=== PATIENT | female | born 1985 | race Caucasian/White ===

== ENCOUNTER 2019-01-22 04:13 | Emergency (ER) | payer OTHER ==
[2019-01-22 04:14] VITALS: BMI 20.2
[2019-01-22] MEDS ORDERED: Iohexol 240 (50 ml) PO ONE (04:52)
--- NOTE | 2019-01-22 05:03 | C.PDOC ---
History Of Present Illness 33 year old female presents to the ED c/o RLQ abdominal pain that started 2 hours [employer]. Patient states she is currently in her third day of her menses but has never experienced this pain before. Patient denies fever, chills, nausea, v omit, diarrhea, constipation, back pain, dysuria, hematuria, rash, vaginal discharge. Time Seen by Provider: 01/22/19 04:40 Chief Complaint (Nursing): Abdominal Pain History Per: Patient History/Exam Limitations: no limitations Onset/Duration Of Symptoms: Hrs (2) Current Symptoms Are (Timing): Still Present Location Of Pain/Discomfort: RLQ Quality Of Discomfort: "Pain" Associated Symptoms: denies: Nausea, Vomiting, Diarrhea, Urinary Symptoms Recent travel outside of the [place]: No Additional History Per: Patient Abnormal Vaginal Bleeding: No Last Menstral Period: now Past Medical History Reviewed: Historical Data, Nursing Documentation, Vital Signs Vital Signs: Last Vital Signs Temp 98.8 F 01/22/19 04:25 Pulse 75 01/22/19 04:25 Resp 20 01/22/19 04:25 BP 130/72 01/22/19 04:25 Pulse Ox 100 01/22/19 04:25 - Medical History PMH: No Chronic Diseases Surgical History: No Surg Hx Family History: States: Unknown Family Hx - Social History Hx Alcohol Use: No Hx Substance Use: No - Immunization History Hx Tetanus Toxoid Vaccination: Yes Hx Influenza Vaccination: No Hx Pneumococcal Vaccination: No Review Of Systems Constitutional: Negative for: Fever, Chills Respiratory: Negative for: Cough, Shortness of Breath Gastrointestinal: Positive for: Abdominal Pain. Negative for: Nausea, Vomiting, Diarrhea Genitourinary: Negative for: Dysuria, Hematuria Musculoskeletal: Negative for: Back Pain Skin: Negative for: Rash Neurological: Negative for: Weakness, Numbness Physical Exam - Physical Exam Appears: Non-toxic, No Acute Distress Skin: Normal Color, Warm, Dry Head: Atraumatic, Normacephalic Eye(s): bilateral: Normal Inspection Oral Mucosa: Moist Neck: Normal ROM, Supple Chest: Symmetrical Cardiovascular: Rhythm Regular Respiratory: Normal Breath Sounds, No Rales, No Rhonchi, No Wheezing Gastrointestinal/Abdominal: Soft, Tenderness (RLQ), No Guarding, No Rebound Back: No CVA Tenderness Pelvic: Vaginal Bleeding (minimal), No Cervical Motion Tenderness, No Adnexal Tenderness Extremity: Normal ROM, No Tenderness, No Swelling Neurological/Psych: Oriented x3, Normal Speech, Normal Cognition Gait: Steady ED Course And Treatment - Laboratory Results Result Diagrams: 01/22/19 05:18 01/22/19 05:18 O2 Sat by Pulse Oximetry: 100 (ON RA) Pulse Ox Interpretation: Normal Progress Note: Plan: - Labs. - Toradol 30 mg IVP. - Zofran 4 mg IVP. - CT abd/pelvis. - UA. 0645- Pt returned from CT c/o of recurring pain, morphine IV ordered. Pt pending CT results and will s/o to [facility]. 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 - Scribe Statement The provider has reviewed the documentation as recorded by the Scribe Mateo Chin All medical record entries made by the Scribe were at my direction and p ersonally dictated by me. I have reviewed the chart and agree that the record accurately reflects my personal performance of the history, physical exam, medical decision making, and the department course for this patient. I have also personally directed, reviewed, and agree with the discharge instructions and disposition. Physician Patient Turnover Patient Signed Over To: Kat [facility] Handoff Comments: pending CT and disposition
[2019-01-22] MEDS ORDERED: Iodixanol 320 MG/ML 100 ML BOTTLE IV ONE (05:06)
[2019-01-22] MEDS ORDERED: Iohexol 240 (50 ml) ONE (05:20)
[2019-01-22 05:23] LABS: BASO % 0.7 % (0.0-2.0); EOS # 0.1 K/uL (0.0-0.7); EOS % 1.8 % (0.0-4.0); HEMOGLOBIN 13.7 g/dL (11.0-16.0); LYMPH # 2.5 K/uL (1.0-4.3); LYMPH % 36.5 % (20.0-40.0); MEAN CELL VOLUME 92.7 fL (81.0-99.0); MEAN CORPUSCULAR HEMOGLOBIN 30.3 pg (27.0-31.0); MEAN CORPUSCULAR HGB CONC 32.7 g/dL (33.0-37.0); MEAN PLATELET VOLUME 8.6 fL (7.2-11.7); MONO # 0.6 K/uL (0.0-0.8); MONO % 8.7 % (0.0-10.0); NEUT # 3.5 K/uL (1.8-7.0); NEUT % 52.3 % (50.0-75.0); NRBC % 0.1 % (0.0-2.0); RBC 4.54 Mil/uL (3.80-5.20); RED CELL DISTRIBUTION WIDTH 13.1 % (11.5-14.5); WHITE BLOOD COUNT 6.7 K/uL (4.8-10.8)
[2019-01-22 05:33] LABS: SQUAMOUS EPITHIAL 4 /hpf (0-5); URINE BILIRUBIN NEGATIVE (NEGATIVE); URINE BLOOD 3+ (NEGATIVE); URINE CLARITY Hazy (Clear); URINE COLOR Yellow (YELLOW); URINE GLUCOSE (UA) NORMAL (Normal); URINE LEUKOCYTE ESTERASE NEG Leu/uL (Negative); URINE PROTEIN NEGATIVE (NEGATIVE); URINE UROBILINOGEN NORMAL mg/dL (0.2-1.0)
[2019-01-22 05:44] LABS: ALB/GLOB RATIO 1.4 (1.0-2.1); ALBUMIN 4.4 g/dL (3.5-5.0); ALT/SGPT 20 U/L (9-52); AST/SGOT 30 U/L (14-36); BLOOD UREA NITROGEN 11 mg/dL (7-17); CALCIUM 9.6 mg/dl (8.6-10.4); GFR NON-AFRICAN AMERICAN > 60; LIPASE 50 U/L (23-300)
[2019-01-22] MEDS ORDERED: Morphine 4 MG/ML VIAL IV ONE (06:46)
[2019-01-22 07:27] VITALS: BP 120/74; PULSE 62; RESP 16; TEMP 98; O2SAT 99
--- NOTE | 2019-01-22 09:29 | CT ---
Date of service: 01/22/2019 PROCEDURE: CT Abdomen and Pelvis with contrast HISTORY: RLQ pain COMPARISON: None. TECHNIQUE: Contrast dose: 100 mL of Visipaque 320 intravenously. Axial reformatted coronal sagittal CT images abdomen pelvis were obtained after IV and oral contrast administration. Radiation dose: Total exam DLP = 252.97 mGy-cm. This CT exam was performed using one or more of the following dose reduction techniques: Automated exposure control, adjustment of the mA and/or kV according to patient size, and/or use of iterative reconstruction technique. FINDINGS: LOWER THORAX: Unremarkable. LIVER: Unremarkable. No gross lesion or ductal dilatation. GALLBLADDER AND BILE DUCTS: Unremarkable. PANCREAS: Unremarkable. No gross lesion or ductal dilatation. SPLEEN: Unremarkable. ADRENALS: Unremarkable. No mass. KIDNEYS AND URETERS: There [id number] right hydronephrosis and hydroureter. There is delayed enhancement of the right kidney associated with mild perinephric stranding. There is a 4 millimeter obstructing calculus at the right uterovesical junction noted. The left kidney is grossly unremarkable. VASCULATURE: Unremarkable. No aortic aneurysm. No aortic atherosclerotic calcification or mural plaque present. BOWEL: Unremarkable. No obstruction. No gross mural thickening. APPENDIX: Normal appendix. PERITONEUM: Unremarkable. No free fluid. No free air. LYMPH NODES: Unremarkable. No enlarged lymph nodes. BLADDER: Unremarkable. REPRODUCTIVE: Slightly heterogeneous mildly enlarged uterine cervix noted. The right adnexa is prominent in size. BONES: No acute fracture. OTHER FINDINGS: None. IMPRESSION: [id number] right hydronephrosis and hydroureter up to 4 millimeter obstructing calculus at the right ureterovesical junction. [id number] constipation. Preliminary report contains concordant findings was submitted by [facility].
== END 2019-01-22 08:48 | disposition home or self-care (01) ==
LOC: C.ER 04:13
DX: R10.31 Right lower quadrant pain (principal)
CPT/HCPCS: 74177; 80053; 81001; 81025; 83690; 85025; 96374; 96375; 99285; J1885; J2270; J2405; Q9966; Q9967

== ENCOUNTER 2019-02-12 13:07 | Outpatient (CLI) | payer OTHER | END 2019-02-12 13:08 | disposition home or self-care (01) | LOC: C.USIC 13:07 ==